=== PATIENT | female | born 1985 | race Caucasian/White ===

== ENCOUNTER 2023-03-03 12:36 | Outpatient (CLI) | payer BC ==
[~2023-03-03 12:36] MED LIST: BIRTH CONTROL PILL PO; CITA20TA28 PO
== END 2023-03-03 23:59 | disposition home or self-care (01) ==
LOC: RAD 12:36
PROVIDERS: ATTEND Specialist
DX: S42.452A Displaced fracture of lateral condyle of left humerus, initial encounter for closed fracture (principal); M79.89 Other specified soft tissue disorders; M25.522 Pain in left elbow; X58.XXXA Exposure to other specified factors, initial encounter; Y93.89 Activity, other specified; Y92.89 Other specified places as the place of occurrence of the external cause; Y99.8 Other external cause status
CPT/HCPCS: 73200

== ENCOUNTER 2023-08-12 12:58 | Day surgery (SDC) | payer BC ==
[2023-08-07 14:55] LABS: URINE HCG NEGATIVE (NEG)
[~2023-08-12] VITALS: Ht 175.3 cm; Wt 70.6 kg
[2023-08-12] VITALS (7 sets, daily range): BP systolic 131–159; BP diastolic 84–96; PULSE 63–80; RESP 10–16; TEMP 98.4; O2SAT 96–100
[~2023-08-12 12:58] MED LIST changes: -BIRTH CONTROL PILL PO; -CITA20TA28 PO; +ESCI20TA39 PO; +NORG1TAB78 PO; +cefazolin 2gm/D5W 100mL 100 ML IV ONE
[2023-08-12] MEDS: ringers solution, lacted 1,000 ML IV SCH (14:21)
[2023-08-12] MEDS: famotidine 20mg tablet PO ONE (14:21)
[2023-08-12 14:46] LABS: BILIRUBIN,URINE NEGATIVE (Neg); CLARITY,URINE CLEAR (Clear); COLOR,URINE YELLOW (Yellow); GLUCOSE, URINE NEGATIVE (Neg); KETONES,URINE NEGATIVE (Neg); LEUKOCYTE ESTERASE ,URINE NEGATIVE (Neg); NITRITES, URINE NEGATIVE (Neg); OCCULT BLOOD,URINE NEGATIVE (Neg); PH,URINE 6.5 (4.8-8.0); PROTEIN,URINE NEGATIVE (Neg); UROBILINOGEN,URINE 0.2 E.U/dL (0.2-1.0)
[2023-08-12 15:00] LABS: UA COLLECTION TYPE NON-SPECIFIED
[2023-08-12 15:34] LABS: APTT 24 SECONDS (22-32); BASOPHILS % (AUTO) 0.7 % (0-1); EOSINOPHILS # (AUTO) 0.1 X10'3 (0-0.9); EOSINOPHILS % (AUTO) 1.8 % (0-6); HEMATOCRIT 39.8 % (35.0-45.0); HEMOGLOBIN 13.6 g/dl (12.0-16.0); LYMPHOCYTES # (AUTO) 1.8 X10'3 (1.1-4.8); LYMPHOCYTES % (AUTO) 35.8 % (21-51); MEAN CORPUSCULAR HEMOGLOBIN 32.7 PG (27.0-31.0); MEAN CORPUSCULAR HGB CONC 34.1 g/dL (33.0-36.5); MEAN CORPUSCULAR VOLUME 95.9 FL (78-98); MEAN PLATELET VOLUME 6.5 FL (7.4-10.4); MONOCYTES # (AUTO) 0.5 X10'3 (0-0.9); MONOCYTES % (AUTO) 10.7 % (2-12); NEUTROPHILS # (AUTO) 2.5 X10'3 (1.8-7.7); PLATELET COUNT 233 X10'3 (140-440); RED BLOOD COUNT 4.15 X10'6 (4.20-5.60); RED CELL DISTRIBUTION WIDTH 11.9 % (11.5-14.5); WHITE BLOOD COUNT 4.9 X10'3 (4.5-11.0)
[2023-08-12 15:38] LABS: ALANINE AMINOTRANSFERASE 21 U/L (12-78); ALBUMIN 3.7 G/DL (3.4-5.0); ALKALINE PHOSPHATASE 47 IU/L (46-116); ANION GAP 9 (8-16); ASPARTATE AMINO TRANSFERASE 17 U/L (10-37); BILIRUBIN,TOTAL 0.6 MG/DL (0.1-1.0); BLOOD UREA NITROGEN 6 MG/DL (7-18); BUN/CREATININE RATIO 10.9 (10.0-20.0); CALCIUM 9.1 MG/DL (8.5-10.1); CHLORIDE 100 MMOL/L (99-107); CREATININE 0.55 MG/DL (0.40-0.90); GLUCOSE 92 MG/DL (70-104); POTASSIUM 3.7 MMOL/L (3.5-5.1); SODIUM 134 MMOL/L (135-145); TOTAL CARBON DIOXIDE 24.9 MMOL/L (24-32); TOTAL PROTEIN 7.4 G/DL (6.4-8.2); eCRCL 145 ML/MIN; eGFR > 90 ML/MIN
[2023-08-12] MEDS ORDERED: vancomycin 1,000mg inj ONE ×2 (16:30→17:30)
[2023-08-12] MEDS ORDERED: sevoflurane 250ml liquid IH ONE (16:35)
[2023-08-12] MEDS ORDERED: dexamethasone sod phosphate 10mg/ml inj ONE (16:35)
[2023-08-12] MEDS ORDERED: morphine 4 MG/ML inj SYRINge IV PRN (16:40)
[2023-08-12] MEDS ORDERED: enalaprilat dihydrate 2.5mg/2ml vial IV PRN (16:40)
[2023-08-12] MEDS ORDERED: proCHLORperazine 10 MG/2 ml inj IV PRN (16:40)
[2023-08-12] MEDS ORDERED: ringers solution, lacted 1,000 ML IV SCH (16:40)
[2023-08-12] MEDS ORDERED: morphine 2 MG/ML inj. syringe IV PRN (16:40)
[2023-08-12] MEDS ORDERED: meperidine/PF 25mg/ml syringe IV PRN ×3 (16:40)
[2023-08-12] MEDS ORDERED: labetalol 20mg/4ml (5mg/ml) syringe IV PRN (16:40)
[2023-08-12] MEDS ORDERED: ondansetron/PF 4mg/2ml inj IV PRN (16:40)
[2023-08-12] MEDS ORDERED: midazolam 1 mg/ML 2ml injection ONE (16:43)
[2023-08-12] MEDS ORDERED: fentaNYL/PF 50MCG/1 ML 2ML syringe ONE (16:43)
[2023-08-12] MEDS ORDERED: LIDOcaine 2% (20mg/ml) 5ml vial ONE (16:48)
[2023-08-12] MEDS ORDERED: propofol inj 20 ML IV ONE (16:48)
[2023-08-12] MEDS ORDERED: BUPIVAcaine 0.5% inj/PF 30 ML ONE (16:53)
[2023-08-12] MEDS: BUPIVAcaine 0.5% inj/PF 30 ml vial IJ ONE (17:27)
[2023-08-12] MEDS ORDERED: ondansetron/PF 4mg/2ml inj ONE (17:49)
[2023-08-12] MEDS ORDERED: meperidine/PF 25mg/ml syringe ONE (17:53)
== END 2023-08-12 19:05 | disposition home or self-care (01) ==
LOC: PAS 12:58
PROVIDERS: ATTEND Specialist
DX: S52.022K Displaced fracture of olecranon process without intraarticular extension of left ulna, subsequent encounter for closed fracture with nonunion (principal); F41.9 Anxiety disorder, unspecified; F32.A Depression, unspecified; Z98.890 Other specified postprocedural states; Z72.89 Other problems related to lifestyle; Z79.899 Other long term (current) drug therapy; Z79.01 Long term (current) use of anticoagulants; X58.XXXD Exposure to other specified factors, subsequent encounter
CPT/HCPCS: 20205; 36415; 80053; 81003; 81025; 82948; 85025; 85730; 87070; 87075; 87077; A6222; J0690; J1100; J2175; J2250; J2405; J2704; J3010; J3370; J3490; J7030; J7120; S0020; Z7506; Z7508; Z7512; A4215; A4565; A4618; A6253; A6449; A7000